=== PATIENT | female | born 2000 | race Native Hawaiian/Other Pacific Islander ===

== ENCOUNTER 2022-04-11 14:43 | Emergency (ER) | payer OTHER, SELFPAY ==
[2022-04-11 14:59] VITALS: BP 124/82; PULSE 82; TEMP 36.1; O2SAT 97; BMI 30.9
--- NOTE | 2022-04-11 15:50 | ED_ITS ---
HPI - General Adult General Date Seen: 04/11/22 Chief complaint: Shortness of Breath/Dyspnea Stated complaint: Racing heart Time Seen by Provider: 04/11/22 15:10 History of Present Illness HPI narrative: Patient is a 21-year-old young woman who presents saying that she has had some dizziness on and off since yesterday and also a sensation that her heart is racing, although these 2 things do not necessarily go together. She has noticed the heart racing mostly in the morning, it can last a few minutes, sometimes longer. She has not checked her pulse. She has not had any fainting. The dizziness comes and goes without any particular pattern, it is not positional. She has a sensation of lightheadedness but has not fainted. She has not had any chest pain although she has a slight sensation of pressure when her heart is racing. She maybe has felt a little bit short of breath as well although she thinks this is more because of that pressure sensation. She has not had cough, fever, or any other respiratory symptoms. She has never had this before. No lower extremity swelling or pain. Related Data Allergies Allergy/AdvReac Type Severity Reaction Status Date / Time No Known Drug Allergies Allergy Verified 04/11/22 15:03 Review of Systems Status of ROS: Reports: 10 or more systems reviewed and unremarkable except as noted in History and below [facility] Social History Smoking Status: Never smoker Do you use any of these nicotine containing products: None Second hand tobacco smoke exposure: No How often do you have a drink containing alcohol: never How often do you have six or more drinks on one occasion: Never AUDIT-C Alcohol total score: 0 Non-prescribed substance use: denies use Exam Narrative: Exam Narrative: Vital signs as noted above. In general, an alert, well-appearing patient. Head: Normocephalic, atraumatic. Eyes: Pupils are equal reactive. Extraocular movements are full. Conjunctivae are normal. ENT: Mucous membranes are moist. Throat is normal. Neck: Supple without lymphadenopathy. Heart: Regular rate and rhythm, occasional early beats. No murmur or rub. Lungs: Clear bilaterally. No increased work of breathing, crackles or wheezes. Abdomen: Soft and nontender. No organomegaly. Extremities: Well perfused. No edema. No calf tenderness. Pulses intact. Neurologic: Patient is alert and oriented to person and place. Speech is fluent. Face is symmetric. Moves all extremities equally. Affect: Normal. Skin: Warm and dry. Well perfused. Const: Vital Signs, click to edit/add: Vital Signs - 24 hr 04/11/22 14:59 Temperature 97.0 F L Pulse Rate [Right Pulse Oximeter] 82 Blood Pressure [Ri ght Upper Arm] 124/82 Pulse Oximetry 97 Course Course Hospital Course: Following initial evaluation, an EKG was done. By my review this shows sinus rhythm, sinus erythema leading to some irregularity which I think is what I was hearing on exam. Ventricular rhythm of 79 beats per minute. Labs are drawn and pending including a BMP, serum test, CBC, troponin. Discussed with her that we can certainly set her up for a Holter to see what these times of heart racing might correlate with, whether sinus tachycardia, different rhythm, or simply a sensation of heart racing without actual tachycardia. Exam is reassuring. She is not tachycardic, hypoxic, complaining of significant shortness of breath, pleuritic chest pain or other symptoms suggestive of PE. EKG shows normal QT corrected, normal [place], no red flags for features suggestive of predisposition for arrhythmia. Assuming normal labs, patient can be reasonably discharged home with Holter monitor and clinic follow-up to discuss results. Return for worsening symptoms such as significant shortness of breath, chest pain, fainting. Patient is signed out to Dr. Valle to follow up on final labs. Please see his addendum for final disposition and plan. Vital Signs Vital signs: Initial Vital Signs Temperature 97.0 F L 04/11/22 14:59 Temperature Source Temporal Artery Scan 04/11/22 14:59 Pulse Rate 82 04/11/22 14:59 Blood Pressure 124/82 04/11/22 14:59 Blood Pressure Mean 96 04/11/22 14:59 Blood Pressure Position Supine 04/11/22 14:59 Pulse Oximetry 97 04/11/22 14:59 Oxygen Delivery Method 04/11/22 14:59 Vital Signs Temperature 97.0 F L 04/11/22 14:59 Pulse Rate 82 04/11/22 14:59 Blood Pressure 124/82 04/11/22 14:59 Pulse Oximetry 97 04/11/22 14:59 Temperature 97.0 F L 04/11/22 14:59 Pulse Rate 73 04/11/22 17:04 Blood Pressure 108/62 04/11/22 17:04 Pulse Oximetry 97 04/11/22 17:04 Medical Decision Making Lab Data Labs: Lab Results 04/11/22 04/11/22 04/11/22 Range/Units 15:30 15:30 15:30 WBC 10.72 (4.50-11.00) K/uL RBC 5.61 H (4.00-5.20) m/uL Hgb 12.4 (12.0-16.0) gm/dL Hct 39.4 (33.0-51.0) % MCV 70 L (80-100) fL MCH 22 L (26-34) pg MCHC 32 (32-36) gm/dL RDW Coeff of Cherelle 15.0 (11.5-15.5) % Plt Count 332 (140-440) K/uL Neut % (Auto) 56.9 (42.0-72.0) % Lymph % (Auto) 34.7 (20-44) % [place] % (Auto) 6.3 (0.0-11.0) % Eos % (Auto) 1.5 (0.0-7.0) % Baso % (Auto) 0.6 (0.0-3.0) % Neut # (Auto) 6.10 (1.7-7.0) K/uL Lymph # (Auto) 3.72 H (0.90-2.90) K/uL [place] # (Auto) 0.70 (0.00-0.90) K/UL Eos # (Auto) 0.16 (0.00-0.50) K/uL Baso # (Auto) 0.06 (0.00-0.30) K/uL Abs Immat Gran (auto) 0.00 (0.00-0.30) K/uL Sodium 139 (135-149) mmol/L Potassium 4.2 (3.6-5.1) mmol/L Chloride 105 (96-114) mmol/L Carbon Dioxide 26 (20-32) mmol/L BUN 9 (5-24) mg/dL Creatinine 0.6 (0.5-1.5) mg/dL Estimated Creat Clear 123.72 Glucose 95 (60-115) mg/dL Calcium 9.7 (8.4-10.6) mg/dL Troponin I < 0.01 L (0.01-0.04) ng/mL HCG, Qual Negative (Negative) Discharge Plan Discharge Clinical Impression: Palpitations Patient Disposition: Home, Self-Care Condition: Stable Instructions: Heart Palpitations (ED) Additional Instructions: Holter monitor as discussed. Clinic follow-up after that. If you have worsening symptoms such as significant chest pain, shortness of breath, fainting or other new worsening, return to the emergency department. Stand Alone Forms: [employer] Info Instructions
[2022-04-11 15:57] LABS: Basophils Absolute Auto 0.06 K/uL (0.00-0.30); Basophils Percent Auto 0.6 % (0.0-3.0); Eosinophils Absolute Auto 0.16 K/uL (0.00-0.50); Eosinophils Percent Auto 1.5 % (0.0-7.0); Hematocrit 39.4 % (33.0-51.0); Hemoglobin* 12.4 gm/dL (12.0-16.0); Lymphocytes Absolute Auto 3.72 K/uL (0.90-2.90); Lymphocytes Percent Auto 34.7 % (20-44); Mean Corpuscular HGB Conc 32 gm/dL (32-36); Mean Corpuscular Hemoglobin 22 pg (26-34); Mean Corpuscular Volume 70 fL (80-100); Monocytes Percent Auto 6.3 % (0.0-11.0); Neutrophils Percent Auto 56.9 % (42.0-72.0); Platelet Count* 332 K/uL (140-440); Red Blood Count 5.61 m/uL (4.00-5.20); White Blood Count* 10.72 K/uL (4.50-11.00)
[2022-04-11 15:58] LABS: Chloride* 105 mmol/L (96-114); Sodium* 139 mmol/L (135-149)
[2022-04-11 16:01] LABS: Blood Urea Nitrogen* 9 mg/dL (5-24); Carbon Dioxide* 26 mmol/L (20-32); Creatinine* 0.6 mg/dL (0.5-1.5); Est. Creatinine Clearance* 123.72
[2022-04-11 16:02] LABS: Calcium* 9.7 mg/dL (8.4-10.6); Glucose* 95 mg/dL (60-115)
[2022-04-11 16:13] LABS: Troponin I* < 0.01 ng/mL (0.01-0.04)
[2022-04-11 16:26] LABS: HCG Qualitative Serum* Negative (Negative)
[2022-04-11 16:33] LABS: Potassium* 4.2 mmol/L (3.6-5.1)
[2022-04-11 17:04] VITALS: BP 108/62; PULSE 73; O2SAT 97
[2022-04-11 17:11] LABS: Slide Review Reflex No
== END 2022-04-11 17:51 | disposition home or self-care (01) ==
PROVIDERS: Emergency Medicine; Emergency Provider Internal Medicine
DX: R00.2 Palpitations (principal)
CPT/HCPCS: 36415; 80048; 84484; 84703; 85025; 93005; 93225; 93226; 99283; 99284

== ENCOUNTER 2022-12-24 22:23 | Emergency (ER) | payer OTHER, SELFPAY ==
[2022-12-24 22:30] VITALS: BP 117/68; PULSE 79; RESP 18; TEMP 36.6; O2SAT 98
[2022-12-24] MEDS: ERYTHROMYCIN OPHTH OINT 3.5 GM 1 APPLIC EYE-LEFT (23:36)
--- NOTE | 2022-12-26 03:09 | ED.EYEPROB ---
HPI - Eye Problem General Chief complaint: Eye Problems Stated complaint: eye infection on left eye Time Seen by Provider: 12/24/22 22:54 History of Present Illness HPI Narrative: 22-year-old young woman accompanied here by friend with concern of left eye discomfort. Started yesterday. No particular injury noted. She is wondering if maybe an eyelash got in her eye. Not really affecting vision. Rather uncomfortable but not horribly painful. Not experiencing copious drainage. No fever. Had trouble sleeping due to discomfort and hoping she can somewhat get good rest tonight. Related Data Home Medications Medication Instructions Recorded Confirmed No Known Home Medications 04/17/22 12/24/22 Allergies Allergy/AdvReac Type Severity Reaction Status Date / Time No Known Drug Allergies Allergy Verified 12/24/22 22:33 Review of Systems Status of ROS: Reports: 6 or more systems reviewed and unremarkable except as noted in History and below [facility] Medical History History of depression Surgical History Hx of tonsillectomy Family History Paternal Grandfather Coronary artery disease Paternal Grandmother Stroke Diabetes Social History Narrative: Single, no kids, [employer] student, nonsmoker, no EtOH Smoking Status: Never smoker Do you use any of these nicotine containing products: None Second hand tobacco smoke exposure: No How often do you have a drink containing alcohol: never How often do you have six or more drinks on one occasion: Never AUDIT-C Alcohol total score: 0 Non-prescribed substance use: denies use Little interest or pleasure in doing things: not at all Feeling down, depressed, or hopeless: not at all Exam Narrative: Exam Narrative: Pleasant. NAD. Sounds just a little congested consistent with lacrimation. Breathing easily otherwise. Extraocular movements are full is not appear to be painful. Right eye is unremarkable left eye with generalized conjunctival injection mild. Small amount of lacrimation without purulent drainage. No surrounding erythema though surrounding lids are a little full/puffy. Brief exam of the eye I do not appreciate any foreign body or significant injury. I do place tetracaine to allow further exam and then fluorescein dye. Under blue light/Wood's lamp I am able to appreciate a trapezoidal uptake in the upper sclera middle of the eye where she has indicated some discomfort. About 3 x 2 mm. There is also a point of uptake at about the 1 o'clock position in the outer aspect of the cornea. I do not appreciate foreign body or uptake on lid eversion. Mild uptake in the lowest most aspect of the sclera as well-trace linear horizontal Const: Documenting provider has reviewed patient's vital signs: yes Course Vital Signs Vital signs: Initial Vital Signs Temperature 97.9 F 12/24/22 22:30 Temperature Source Temporal Artery Scan 12/24/22 22:30 Pulse Rate 79 12/24/22 22:30 Pulse Strength 3+ Normal 12/24/22 22:30 Respiratory Rate 18 12/24/22 22:30 Blood Pressure 117/68 12/24/22 22:30 Blood Pressure Mean 84 12/24/22 22:30 Blood Pressure Position Sitting 12/24/22 22:30 Pulse Oximetry 98 12/24/22 22:30 Oxygen Delivery Method 12/24/22 22:30 Vital Signs Temperature 97.9 F 12/24/22 22:30 Pulse Rate 79 12/24/22 22:30 Respiratory Rate 18 12/24/22 22:30 Blood Pressure 117/68 12/24/22 22:30 Pulse Oximetry 98 12/24/22 22:30 Oxygen Delivery Method 12/24/22 22:30 Temperature 97.9 F 12/24/22 22:30 Pulse Rate 79 12/24/22 22:30 Respiratory Rate 18 12/24/22 22:30 Blood Pressure 117/68 12/24/22 22:30 Pulse Oximetry 98 12/24/22 22:30 Oxygen Delivery Method 12/24/22 22:30 MDM - Eye Problem MDM Narrative Medical decision making narrative: See above. Appears to have sustained an irritant of some sort I suspect more rubbing the eye has created the injury. Whatever was there does not appear to be evident now. Rinsed eye with some normal saline and then placed erythromycin ointment. See patient discharge plan Discharge Plan Discharge Clinical Impression: Abrasion of sclera, Corneal abrasion Patient Disposition: Home, Self-Care Condition: Stable Additional Instructions: Use the erythromycin ointment as prescribed with the last daily dose before bed. Be seen for marked increase in pain, increasing redness/tension/heat/pain around the eye, copious purulent drainage. Can take up to 800 mg of ibuprofen or up to 1000 mg of acetaminophen per dose. Alternative to the ibuprofen would be up to 500 mg naproxen 2 times daily. Prescriptions: No Action No Known Home Medications Follow Up/Referrals: Provider,Not a Local [Primary Care Provider] - Stand Alone Forms: [employer] Info Instructions
== END 2022-12-24 23:37 | disposition home or self-care (01) ==
LOC: ED 23:25
PROVIDERS: Emergency Provider Family Medicine
DX: S05.02XA Injury of conjunctiva and corneal abrasion without foreign body, left eye, initial encounter (principal)
CPT/HCPCS: 65222; 99283; A9270

== ENCOUNTER 2024-02-17 22:04 | Emergency (ER) | payer OTHER, SELFPAY ==
[2024-02-17 22:23] VITALS: BP 119/76; PULSE 77; RESP 16; TEMP 36.3; O2SAT 98; BMI 28.6
--- NOTE | 2024-02-17 22:59 | ED_ITS ---
HPI - Abdominal Pain General Time Seen by Provider: 22:59 Date Seen: 02/17/24 Chief Complaint: Abdominal Pain Stated Complaint: Abdominal Pain Time Seen by Provider: 02/17/24 22:59 Source: patient, RN notes reviewed and old records reviewed Mode of arrival: ambulatory Limitations: no limitations History of Present Illness HPI narrative: 23-year-old female who presents today with abdominal pain. Patient complains of left lower abdominal pain today. She really only notices this if she presses on it on it. no pain with walking, bending. Denies urinary symptoms. Denies possibility of . Says it feels like a bruise but no known injury. Related Data Home Medications Medication Instructions Recorded Confirmed No Known Home Medications 04/17/22 04/18/23 Allergies Allergy/AdvReac Type Severity Reaction Status Date / Time No Known Drug Allergies Allergy Verified 04/18/23 14:13 Review of Systems Status of ROS Reports: 10 or more systems reviewed and unremarkable except as noted in History and below [facility] Medical History History of depression ?Z86.59 - Personal history of other mental and behavioral disorders (ICD-10) Surgical History Hx of tonsillectomy ?Z90.89 - Acquired absence of other organs (ICD-10) Family History (Updated 04/18/23 @ 15:48 by Nohemi Naranjo CNM) Paternal Grandfather Coronary artery disease Paternal Grandmother Stroke Diabetes Father High cholesterol Social History Narrative: Single, no kids, [email or web address] student, nonsmoker, no EtOH What is your current living situation?: I presently have a place to live In the past 12 months, utilities in danger of being shut off: no In past 12 months, lack of transportation kept you from medical appts, meetings, work, or getting things needed for daily living: no In the past 12 mos, have been you worried that your food would run out before you had money to buy more?: sometimes true In the past 12 mos, the food you bought just didn't last and you didn't have money to buy more?: sometimes true Smoking Status: Never smoker Do you use any of these nicotine containing products: None Second hand tobacco smoke exposure: No How often do you have a drink containing alcohol: never How often do you have six or more drinks on one occasion: Never AUDIT-C Alcohol total score: 0 Non-prescribed substance use: denies use How often does anyone, including family, friends and others, physically hurt you : never How often does anyone, including family, friends and others, insult or talk down to you: never How often does anyone, including family, friends and others, threaten you with harm: never How often does anyone, including family, friends and others, scream or curse at you: never Little interest or pleasure in doing things: not at all Feeling down, depressed, or hopeless: not at all Exam Narrative: Exam Narrative: General: Well-developed and well-nourished, no acute distress Head: Atraumatic and normocephalic Eyes: Pupils are equal reactive, extraocular motions intact, conjunctiva clear ENT: External nose and ears are normal, posterior pharynx without erythema or exudate Neck: No midline cervical tenderness, full spontaneous range of motion the neck, trachea midline, no adenopathy Heart: Regular rate and rhythm no murmurs or thrills Lungs: Clear to auscultation bilaterally without wheezes or crackles Abdomen: Soft, mild left lower quadrant tenderness with positive Carnett sign, nondistended with active bowel sounds Musculoskeletal: No tenderness, deformity, or edema Neurologic: Awake, alert, and oriented x3, no gross focal neurologic deficits, cranial nerves intact as tested Psych: Mood and affect are appropriate Skin: No rashes Const: Vital Signs, click to edit/add: Vital Signs - 24 hr 02/17/24 22:23 Temperature 97.3 F L Pulse Rate [Pulse Oximeter] 77 Respiratory Rate 16 Blood Pressure [Ri ght Upper Arm] 119/76 Pulse Oximetry 98 Oxygen Delivery Me thod Room Air Course Course ED Course: Patient seen examined, prior records reviewed. Patient presents today with left lower abdominal pain which is present only when she presses in the area and feels like a bruise. Denies possibility of . On exam, left lower abdominal tenderness with positive Carnett sign. We discussed possible diagnoses including ovarian cyst, ovarian torsion, or other intra-abdominal pathology. However, as patient reports that this is only present with palpation, has a positive Carnett sign, after shared decision-making conversation will treat symptomatically and patient is stable for discharge. Denies multiple times any possibility of . Vital Signs Vital signs: Initial Vital Signs Temperature 97.3 F L 02/17/24 22:23 Temperature Source Temporal Artery Scan 02/17/24 22:23 Pulse Rate 77 02/17/24 22:23 Respiratory Rate 16 02/17/24 22:23 Blood Pressure 119/76 02/17/24 22:23 Blood Pressure Mean 90 02/17/24 22:23 Blood Pressure Position Sitting 02/17/24 22:23 Pulse Oximetry 98 02/17/24 22:23 Oxygen Delivery Method Room Air 02/17/24 22:23 Vital Signs Temperature 97.3 F L 02/17/24 22:23 Pulse Rate 77 02/17/24 22:23 Respiratory Rate 16 02/17/24 22:23 Blood Pressure 119/76 02/17/24 22:23 Pulse Oximetry 98 02/17/24 22:23 Oxygen Delivery Method Room Air 02/17/24 22:23 Temperature 97.3 F L 02/17/24 22:23 Pulse Rate 77 02/17/24 22:23 Respiratory Rate 16 02/17/24 22:23 Blood Pressure 119/76 02/17/24 22:23 Pulse Oximetry 98 02/17/24 22:23 Oxygen Delivery Method Room Air 02/17/24 22:23 Discharge Plan Discharge Clinical Impression: Abdominal wall pain Patient Disposition: Home, Self-Care Condition: Stable Instructions: Abdominal Pain (ED) Additional Instructions: Your pain today is most likely from mild injury of the abdominal musculature. Take Tylenol or ibuprofen for this, warm packs or ice packs for comfort. Activity as tolerated. If your pain gets worse or you develop other symptoms such as bloody diarrhea, urinary symptoms, or vaginal bleeding, return to the emergency department Activity Level: Activity as Tolerated Discharge Diet: Regular Prescriptions: No Action No Known Home Medications Follow Up/Referrals: Provider,Not a Local [Primary Care Provider] - Stand Alone Forms: [employer] Info Instructions
--- OUTSIDE RECORDS SUMMARY | 2024-02-17 23:29 | XMS_ITS | Clinical Summary ---
Author Name Unknown Organization [facility] Address [place], [place] [address] Care Team Providers Care Heritage Consultant Name Role Phone Parminder Valle MD Primary Care Provider Social History Tobacco Use Types Packs/Day Years Used Date Smoking Tobacco: Never Assessed Sex and Gender Information Value Date Recorded Sex Assigned at Not on file Gender Identity Not on file Sexual Orientation Not on file Plan of Treatment Health Maintenance Due Date Last Done Comments Tdap 2012 Depression screening for age 12+ 2013 HIV for age 15-65 2016 HPV series for age 9-26 (1 - 3-dose series) 2016 BMI (ht and wt on same day) for age 18+ 2019 Hepatitis C screening for age 18-79 2019 Tetanus booster 2021 Pap test for age 21-65 2022 COVID-19 vaccine series (2022-24 season) 2023 07/20/2022, 01/30/2022, 07/06/2021, Additional history exists Influenza for age 9-49 06/08/2024 Pneumococcal series for age 6-64 Aged Out No longer eligible based on patient's age to complete this topic Care Teams Heritage Consultant Relationship Specialty Start Date End Date Parminder Valle MD [address] [place] [address] PCP - General Internal Medicine 04/11/22
== END 2024-02-17 23:36 | disposition home or self-care (01) ==
LOC: ED 23:28
PROVIDERS: Emergency Provider Family Medicine
DX: R10.32 Left lower quadrant pain (principal)
CPT/HCPCS: 99283

== ENCOUNTER 2024-12-04 11:05 | Emergency (ER) | payer OTHER, SELFPAY ==
--- OUTSIDE RECORDS SUMMARY | 2024-12-04 11:07 | XMS_ITS | Clinical Summary ---
Author Organization [facility] Address [address] [place] [id number] Care Team Providers Care Form Raiser Name Role Phone Parminder Valle MD Primary Care Provider Social History Tobacco Use Types Packs/Day Years Used Date Smoking Tobacco: Never Assessed Comments Unknown Sex and Gender Information Value Date Recorded Sex Assigned at Not on file Legal Sex Female 7:22 AM CDT Gender Identity Not on file Sexual Orientation [...] for age 21-65 2022 COVID-19 vaccine series ( season) 2024 07/20/2022, 01/30/2022, 07/06/2021, Additional history exists Influenza for age 9-49 06/08/2024 Pneumococcal series for age 6-49 Aged Out No longer eligible based on patient's age to complete this topic Care Teams Form Raiser Relationship Specialty Start Date End Date Parminder Valle MD [address] [place] [address] PCP - General Internal Medicine 04/11/22
[2024-12-04 11:23] VITALS: BP 108/67; PULSE 93; RESP 16; TEMP 36.2; O2SAT 98; BMI 25.0
--- NOTE | 2024-12-04 11:45 | ED.GENADULT ---
HPI - General Adult General Date Seen: 12/04/24 Chief complaint: Constipation Stated complaint: cant't pass stool, painful Time Seen by Provider: 12/04/24 11:18 History of Present Illness HPI narrative: Patient is a 24-year-old woman who is a [employer] student. She presents for evaluation of constipation, inability to have a bowel movement since yesterday. She says she has a constant sensation like she needs to poop but she is not able to pass whatever stools there. She felt dizzy earlier and this concerned her so she decided to come in. She does note that she has had something like this in the past and with hydration it is resolved that does not seem to be working this time. She does not take any medications for constipation. She has not had vomiting, fevers etcetera. A little bit of crampy abdominal pain which is diffuse and intermittent. Related Data Home Medications ?Medication ?Instructions ?Recorded ?Confirmed No Known Home Medications 04/17/22 12/04/24 Allergies Allergy/AdvReac Type Severity Reaction Status Date / Time No Known Drug Allergies Allergy Verified 12/04/24 11:30 PFSH PFS Medical History History of depression ?Z86.59 - Personal history of other mental and behavioral disorders (ICD-10) Surgical History Hx of tonsillectomy ?Z90.89 - Acquired absence of other organs (ICD-10) Family History (Updated 04/18/23 @ 15:48 by Nohemi Naranjo CNM) Paternal Grandfather Coronary artery disease Paternal Grandmother Stroke Diabetes Father High cholesterol Social History Narrative: Single, no kids, [employer] student, nonsmoker, no EtOH What is your current living situation?: I presently have a place to live In the past 12 months, utilities in danger of being shut off: no In past 12 months, lack of transportation kept you from medical appts, meetings, work, or getting things needed for daily living: no In the past 12 mos, have been you worried that your food would run out before you had money to buy more?: sometimes true In the past 12 mos, the food you bought just didn't last and you didn't have money to buy more?: sometimes true Smoking Status: Never smoker Do you use any of these nicotine containing products: None Second hand tobacco smoke exposure: No How often do you have a drink containing alcohol: 2-4 times a month How often do you have six or more drinks on one occasion: Never AUDIT-C Alcohol total score: 2 Non-prescribed substance use: denies use How often does anyone, including family, friends and others, physically hurt you: never How often does anyone, including family, friends and others, insult or talk down to you: never How often does anyone, including family, friends and others, threaten you with harm: never How often does anyone, including family, friends and others, scream or curse at you: never Health Related Social Needs: food insecurity (Z59.41) Exam Narrative: Exam Narrative: Vital signs reviewed In general, alert, nontoxic young woman. Abdomen: Soft and nontender. Rectal: She has impacted stool in the rectal vault. She has a small external hemorrhoid, nonthrombosed. No bleeding noted. Const: Vital Signs, click to edit/add: Vital Signs - 24 hr 12/04/24 11:23 Temperature 97.1 F L Pulse Rate [Pulse Oximeter] 93 Respiratory Rate 16 Blood Pressure [Ri ght Upper Arm] 108/67 Pulse Oximetry 98 Oxygen Delivery Me thod Room Air Course Course ED Course: We will go ahead and try an enema here although I discussed with her sometimes we have better luck with high-dose MiraLax. If we do not have good success with the enema, then I would recommend a trial of that at home. She was not successful after the enema here, but I think overall she would be best served by and MiraLax cleanout. We discussed the possibility of disimpaction but I think all things taken together she will not tolerate that well. I gave her instructions on MiraLax cleanout. Return as needed. Recommended chronic daily MiraLax going forward. Vital Signs Vital signs: Initial Vital Signs Temperature 97.1 F L 12/04/24 11:23 Temperature Source Temporal Artery Scan 12/04/24 11:23 Pulse Rate 93 12/04/24 11:23 Respiratory Rate 16 12/04/24 11:23 Blood Pressure 108/67 12/04/24 11:23 Blood Pressure Mean 80 12/04/24 11:23 Blood Pressure Position Sitting 12/04/24 11:23 Pulse Oximetry 98 12/04/24 11:23 Oxygen Delivery Method Room Air 12/04/24 11:23 Vital Signs Temperature 97.1 F L 12/04/24 11:23 Pulse Rate 93 12/04/24 11:23 Respiratory Rate 16 12/04/24 11:23 Blood Pressure 108/67 12/04/24 11:23 Pulse Oximetry 98 12/04/24 11:23 Oxygen Delivery Method Room Air 12/04/24 11:23 Temperature 97.1 F L 12/04/24 11:23 Pulse Rate 93 12/04/24 11:23 Respiratory Rate 16 12/04/24 11:23 Blood Pressure 108/67 12/04/24 11:23 Pulse Oximetry 98 12/04/24 11:23 Oxygen Delivery Method Room Air 12/04/24 11:23 Medications Administered Medications: Discontinued Medications Generic Name Dose Route Start Last Admin Trade Name Tyson PRN Reason Stop Dose Admin Docusate Sodium/Benzocaine 5 ml 12/04/24 11:42 12/04/24 12:00 Docusate Sodium/Benzocaine 5 Ml Enema MI 12/04/24 11:43 5 ml ONCE ONE Administration Discharge Plan Discharge Clinical Impression: Fecal impaction Patient Disposition: Home, Self-Care Condition: Stable Instructions: Fecal Impaction (ED) Additional Instructions: I am giving instructions on how to do a cleanout using MiraLax. This can be purchased at the drugstore, along with Dulcolax, Gatorade etcetera. This will liquify the impacted stool so that you can pass it. After completing the clean out, I would recommend MiraLax, 1 capful daily, to avoid future constipation/impaction. Prescriptions: No Action No Known Home Medications Follow Up/Referrals: Provider,Not a Local [Primary Care Provider] - Stand Alone Forms: MyHealth Info Instructions
--- OUTSIDE RECORDS SUMMARY | 2024-12-04 11:59 | XMS_ITS | Clinical Summary ---
Author Organization [facility] Address [address] [place] [id number] Care Team Providers Care Senior Analyst Developer Name Role Phone Parminder Valle MD Primary [...] age to complete this topic Care Teams Senior Analyst Developer Relationship Specialty Start Date End Date Parminder Valle MD [address] [place] [address] PCP - General Internal Medicine 04/11/22
[2024-12-04] MEDS: DOCUSATE SODIUM/BENZOCAINE 5 ML ENEMA PR (12:00)
== END 2024-12-04 13:11 | disposition home or self-care (01) ==
PROVIDERS: Emergency Provider Emergency Medicine
DX: K56.41 Fecal impaction (principal)
CPT/HCPCS: 99283; A9270